=== PATIENT | male | born 1960 | race Caucasian/White ===

== ENCOUNTER 2018-03-14 12:13 | Emergency (ER) | payer MEDICARE ==
[2018-03-14] MEDS ORDERED: fentaNYL 100 MCG/2 ML SDV IM ONE (12:50)
--- NOTE | 2018-03-14 13:04 | EDM.PDOC ---
ED HPI GENERAL MEDICAL PROBLEM - General Chief Complaint: Back Pain or Injury Stated Complaint: RUPTURED DISK Time Seen by Provider: 03/14/18 12:45 Source of Information: Reports: Patient History Limitations: Reports: No Limitations - History of Present Illness INITIAL COMMENTS - FREE TEXT/NARRATIVE: States that he was seen in the [place] [facility] about 3 weeks ago because he " popped a disk" He is scheduled to have a MRI in [place] tomorrow. He has pain down the left leg and in the lumbar area. He states that he has been taking his Hydrocodone 10/325 2 tabs every 4-6 hours "or more". Hasn't taken his BP pill for at least 1 day. He states that depending on how he moves that the pain is going down the left leg all the way to the foot. Denies any numbness at this time. 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 States that his blood pressure won't come down until his pain is controlled. He voices that it had been controlled until this happened and now it has been running high. Onset: Gradual Duration: Week(s): Location: Reports: Back, Lower Extremity, Left Associated Symptoms: Reports: No Other Symptoms Left Lower Back Pain Score (Numeric/FACES): 9 - Related Data Allergies Allergy/AdvReac Type Severity Reaction Status Date / Time No Known Allergies Allergy Verified 03/14/18 12:25 Home Meds: Home Meds Ibuprofen 400 mg PO Q6HR PRN 04/17/16 [History] Lisinopril/Hydrochlorothiazide [Lisinopril-Hctz 20-25 mg Tab] 2 each PO DAILY [History] Hydrocodone/Acetaminophen [Hydrocodon-Acetaminophn 10-325] 2 tab PO Q6HR PRN [History] Past Medical History Cardiovascular History: Reports: Hypertension Musculoskeletal History: Reports: Back Pain, Chronic, Neck Pain, Chronic - Past Surgical History Musculoskeletal Surgical History: Reports: Other (See Below), Shoulder Replacement Other Musculoskeletal Surgeries/Procedures:: neck surgery, back surgery Social & Family History - Tobacco Use Smoking Status *Q: Current Every Day Smoker Years of Tobacco use: 25 Packs/Tins Daily: 0.5 - Caffeine Use Caffeine Use: Reports: Coffee - Recreational Drug Use Recreational Drug Use: No ED ROS GENERAL - Review of Systems Review Of Systems: See Below Constitutional: Reports: No Symptoms HEENT: Reports: No Symptoms Respiratory: Reports: No Symptoms Cardiovascular: Reports: No Symptoms GI/Abdominal: Reports: No Symptoms Musculoskeletal: Reports: Back Pain, Leg Pain. Denies: Neck Pain Skin: Reports: No Symptoms Neurological: Denies: Numbness, Tingling ED EXAM,LOWER BACK PAIN/INJURY - Physical Exam Exam: See Below Exam Limited By: No Limitations General Appearance: Alert, WD/WN, Moderate Distress Ears: Normal External Exam, Normal TMs Throat/Mouth: Normal Inspection, Normal Oropharynx Head: Atraumatic, Normocephalic Neck: Normal Inspection, Supple, Non-Tender Respiratory/Chest: No Respiratory Distress, Lungs Clear, Normal Breath Sounds Cardiovascular: Normal Peripheral Pulses, Regular Rate, Rhythm GI/Abdominal: Normal Bowel Sounds, Soft, Non-Tender Back Exam: Other (Tender to the lumbar area with any palpation. has pain down the left leg. Strength is decreased to the left. Reflexes are decreased to the left leg. ) Extremities: No Pedal Edema, Normal Capillary Refill Neurological: Alert, Oriented x 3 Skin Exam: Warm, Dry, Intact Course - Vital Signs Last Recorded V/S: Last Vital Signs Temp 98.6 F 03/14/18 12:27 Pulse 85 03/14/18 13:53 Resp 20 03/14/18 12:27 BP 203/122 H 03/14/18 13:53 Pulse Ox 96 03/14/18 12:27 - Orders/Labs/Meds Meds: Medications Discontinued Medications Generic Name Dose Route Start Last Admin Trade Name Lizz PRN Reason Stop Dose Admin Clonidine HCl 0.1 mg 03/14/18 13:11 03/14/18 13:14 Catapres PO 03/14/18 13:12 0.1 mg NOW STA Administration Fentanyl 50 mcg 03/14/18 12:50 03/14/18 12:58 Sublimaze IM 03/14/18 12:51 50 mcg ONETIME ONE Administration - Re-Assessments/Exams Free Text/Narrative Re-Assessment/Exam: 03/14/18 13:15 BP is uncontrolled as he has not been taking his meds as ordered. Will treat with clonidine orally at this time. Pain has improved after IM given. 03/14/18 1430 BP continues to be high. He states that it is because his pain level is up. Wants to be discharged so that he can get his pain meds filled and go to [place] to get MRI at 0700 tomorrow. Steffany RN did check with the [place] [facility] to verify the above story and he was there as he states. I was not able to find a prescription drug history as it was not available at board of pharmacy. He refused to take any further BP meds as he states they won't help and he just wants to leave so that he can lay down. He is planning on going to [facility] to make sure he can get MRI in the morning. 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 It was discussed with him the risk of running BP that high and not be properly treated for it and that he is at higher risk of stroke and heart attack but he refuses further treatment for this. Departure - Departure Time of Disposition: 16:30 Disposition: Home, Self-Care 01 Condition: Fair Clinical Impression: Back pain at L4-L5 level, Uncontrolled hypertension - Discharge Information Referrals: PCP,None [Primary Care Provider] - Forms: ED Department Discharge Additional Instructions: Keep appt for MRI as scheduled tomorrow in [place] Percocet 5/325 take 1 tablet up to 3 times a day for pain. #15 given in prescription. if hydrocodone is not working DO not take more pain meds than are ordered. Follow up with regular Dr. for further pain meds. Take BP meds as soon as you get them picked up. - Problem List & Annotations (1) Back pain at L4-L5 level SNOMED Code(s): 544795231 Code(s): M54.5 - LOW BACK PAIN Status: Acute Priority: High (2) Uncontrolled hypertension SNOMED Code(s): 09882029, 80500069 Code(s): I10 - ESSENTIAL (PRIMARY) HYPERTENSION Status: Chronic Priority : High - Problem List Review Problem List Initiated/Reviewed/Updated: Yes - Assessment/Plan Plan: see above
[2018-03-14] MEDS ORDERED: cloNIDine 0.1 MG Tab PO STA (13:11)
[2018-03-14 13:53] VITALS: BP 203/122
== END 2018-03-14 13:55 | disposition home or self-care (01) ==
LOC: CC.ED 12:13
DX: M54.5 Low back pain (principal); I10 Essential (primary) hypertension; F17.210 Nicotine dependence, cigarettes, uncomplicated; Z79.899 Other long term (current) drug therapy
CPT/HCPCS: 96372; 99283; 99284; A9270; J3010

== ENCOUNTER 2019-02-01 17:57 | Emergency (ER) | payer OTHER, MEDICARE ==
[2019-02-01 18:00] VITALS: BP 167/81; PULSE 89
--- NOTE | 2019-02-01 18:16 | EDM.PDOC ---
ED HPI GENERAL MEDICAL PROBLEM - General Chief Complaint: Lower Extremity Injury/Pain Stated Complaint: L Hip Pain Time Seen by Provider: 02/01/19 18:03 Source of Information: Reports: Patient History Limitations: Reports: No Limitations - History of Present Illness INITIAL COMMENTS - FREE TEXT/NARRATIVE: in with c/ left hip and low back pain, advised has fallen 3 times in the past week, the last time was yesterday, advised this past spring did have LS spine surg. the pt denies any problems have a BM or voiding, no janessa anal/rectal numbness, does have numbness into his left leg which is unchanged from even before the surgery. denies any abd pain, no nv, denies any LOC, did not hit his head, has been ambulating with pain after all the falls. denies any neck pain, no upper ext pain, no upper back pain, no other lower ext pain except the left hip. The patient does not know why he keeps falling. 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 TECH: Reports: Acetaminophen, NSAIDS l hip Pain Score (Numeric/FACES): 10 - Related Data Allergies Allergy/AdvReac Type Severity Reaction Status Date / Time No Known Allergies Allergy Verified 02/01/19 18:02 Home Meds: Home Meds Lisinopril/Hydrochlorothiazide [Lisinopril-Hctz 20-25 mg Tab] 1 each PO DAILY [History] amLODIPine Besylate [Amlodipine Besylate] 10 mg PO DAILY 04/16/18 [History] Ketorolac [Toradol] 10 mg PO TID PRN 5 Days #12 tab 02/01/19 [Rx] Methocarbamol [Robaxin] 500 mg PO TID #30 tab 02/01/19 [Rx] Past Medical History Cardiovascular History: Reports: Hypertension Musculoskeletal History: Reports: Back Pain, Chronic, Neck Pain, Chronic - Past Surgical History Musculoskeletal Surgical History: Reports: Other (See Below), Shoulder Replacement Other Musculoskeletal Surgeries/Procedures:: neck surgery, back surgery Social & Family History - Caffeine Use Caffeine Use: Reports: Coffee Review of Systems - Review of Systems Review Of Systems: See Below Constitutional: Reports: No Symptoms. Denies: Chills, Fever Ears: Reports: No Symptoms. Denies: Dizziness Nose: Reports: No Symptoms Mouth/Throat: Reports: No Symptoms Respiratory: Reports: No Symptoms. Denies: Shortness of Breath Cardiovascular: Reports: No Symptoms. Denies: Chest Pain, Irregular Heart Rate , Palpitations, Syncope GI/Abdominal: Reports: No Symptoms. Denies: Abdominal Pain, Nausea, Vomiting Musculoskeletal: Reports: No Symptoms, Back Pain (lower back only), Leg Pain ( left hip pain only). Denies: Neck Pain, Shoulder Pain Skin: Reports: No Symptoms. Denies: Bruising, Rash, Erythema Neurological: Reports: No Symptoms, Numbness (as above). Denies: Confusion, Dizziness, Headache, Trouble Speaking, Difficulty Walking, Weakness, Change in Speech, Gait Disturbance Psychiatric: Reports: No Symptoms ED EXAM, GENERAL - Physical Exam Exam: See Below Exam Limited By: No Limitations General Appearance: Alert, WD/WN, No Apparent Distress Ears: Normal External Exam Nose: Normal Inspection Throat/Mouth: Normal Lips, Normal Voice, No Airway Compromise Head: Atraumatic, Normocephalic Neck: Normal Inspection, Supple, Non-Tender, Full Range of Motion Respiratory/Chest: No Respiratory Distress, Lungs Clear, Normal Breath Sounds, Chest Non-Tender Cardiovascular: Normal Peripheral Pulses, Regular Rate, Rhythm, No Murmur Peripheral Pulses: 2+: Radial (L), Radial (R), Posterior Tibial (L) GI/Abdominal: Soft, Non-Tender, Other (obese) Back Exam: Normal Inspection, Full Range of Motion, Other (lower back pain more left sided not specifically over the spinal processes. ) Extremities: Normal Inspection, Normal Range of Motion, Normal Capillary Refill. No: Non-Tender (left hip pain) Neurological: Alert, Oriented, Normal Cognition, No Motor/Sensory Deficits. No : Normal Gait (limp on the left) Psychiatric: Normal Affect, Normal Mood Skin Exam: Warm, Dry, Intact, Normal Color. No: Ecchymosis Course - Vital Signs Text/Narrative:: pt evaluated in the ED, xray of the LS spine do not show any obvious fx, hardware appears to be intact, will give Robaxin 500mg tid x 10 days and ketorolac 10mg tid prn, will be advised to f/u with pcp this week, pt to call Sunday for an appointment time. is to return to ER sooner if worse or problems Last Recorded V/S: Last Vital Signs Temp 36.3 C 02/01/19 17:57 Pulse 89 02/01/19 17:57 Resp 18 02/01/19 17:57 BP 167/81 H 02/01/19 17:57 Pulse Ox 96 02/01/19 17:57 - Orders/Labs/Meds Orders: Active Orders 24 hr Category Date Time Status Hip Min 2V or 3V Lt [CR] Stat Exams 02/01/19 18:04 Taken Lumbar Spine 2 or 3V [CR] Stat Exams 02/01/19 18:04 Taken - Radiology Interpretation Free Text/Narrative:: 1850 LS spine and left hip do not show any obvious fx, radiology ready still pending Departure - Departure Time of Disposition: 18:53 Disposition: Home, Self-Care 01 Condition: Good Clinical Impression: Other sprain of left hip, initial encounter, Lumbar spine strain - Discharge Information *PRESCRIPTION DRUG MONITORING PROGRAM REVIEWED*: Not Applicable *COPY OF PRESCRIPTION DRUG MONITORING REPORT IN PATIENT GREGORY: Not Applicable Prescriptions: Ketorolac [Toradol] 10 mg PO TID PRN 5 Days #12 tab PRN Reason: Pain (Moderate 4-6) Methocarbamol [Robaxin] 500 mg PO TID #30 tab Instructions: Hip Pain, Low Back Sprain, Muscle Strain, [id number] Forms: ED Department Discharge Additional Instructions: rest use a cane to help with walking Robaxin 500mg 3 x a day for 10 days ketorolac 10mg 3 x a day as needed for pain follow up with your family doctor this week, call Sunday am for an appointment time return to the ER sooner if worse or problems - Problem List & Annotations (1) Lumbar spine strain SNOMED Code(s): 031456178 Code(s): S39.012A - STRAIN OF MUSCLE, FASCIA AND TENDON OF LOWER BACK, INIT Status: Acute Priority: Medium Current Visit: Yes Qualifiers: Encounter type: initial encounter Qualified Code(s): S39.012A - Strain of muscle, fascia and tendon of lower back, initial encounter (2) Other sprain of left hip, initial encounter SNOMED Code(s): 69277584 Code(s): S73.192A - OTHER SPRAIN OF LEFT HIP, INITIAL ENCOUNTER Status: Acute Priority: Medium Current Visit: Yes - Problem List Review Problem List Initiated/Reviewed/Updated: Yes - My Orders Last 24 Hours: My Active Orders 02/01/19 18:04 Hip Min 2V or 3V Lt [CR] Stat Lumbar Spine 2 or 3V [CR] Stat - Assessment/Plan Last 24 Hours: My Active Orders 02/01/19 18:04 Hip Min 2V or 3V Lt [CR] Stat Lumbar Spine 2 or 3V [CR] Stat Plan: as above
[2019-02-01] MEDS ORDERED: Take Home: Cyclobenzaprine 10 MG Tab, 4 Tab Pack PO ONE (18:57)
[2019-02-01] MEDS ORDERED: Take Home: Ketorolac 10 MG Tab, 4 Tab Pack PO ONE (18:57)
== END 2019-02-01 19:21 | disposition home or self-care (01) ==
LOC: CC.ED 17:57
DX: S73.192A Other sprain of left hip, initial encounter (principal); S39.012A Strain of muscle, fascia and tendon of lower back, initial encounter; I10 Essential (primary) hypertension; Z79.899 Other long term (current) drug therapy; W19.XXXA Unspecified fall, initial encounter
CPT/HCPCS: 72100; 99284; 99284-25